=== PATIENT | male | born 1945 | race Caucasian/White ===

== ENCOUNTER → 2021-11-27 14:14 | Outpatient (BNVA) | payer MEDICARE, SELFPAY | PROVIDERS: PCP Internal Medicine; Visit Provider Nurse Practitioner Family | DX: M16.0 Bilateral primary osteoarthritis of hip (principal); M47.816 Spondylosis without myelopathy or radiculopathy, lumbar region; R10.32 Left lower quadrant pain | CPT/HCPCS: 99202 ==

== ENCOUNTER 2025-07-11 09:25 | Outpatient (AMB) | payer MEDICARE, SELFPAY ==
--- NOTE | 2025-07-11 09:38 | A.PHYSOV ---
Vital Signs 07/11/25 09:39 Height 5 ft 8 in Weight 183 lb BMI 27.8 Intake Visit Reasons: NPV [place] Ref- chronic b/l back & left hip pain Intake Note: Patient is a 79 year old male in office today for a new patient visit for left hip pain and low back pain Pulpwood Dealer Required: No Allergies No Known Allergies Allergy (Verified 07/11/25 09:37) HPI Comments Details: History of Present Illness The patient is a 79-year-old male presenting for evaluation of chronic back issues. He has had back issues for several years, which he believes may have started after overdoing yard work. He previously underwent physical therapy where piriformis syndrome was discussed, and he continues to perform the prescribed exercises, which helps prevent pain that wakes him at night. The pain is centered in the left lumbar spine area and sometimes radiates across his back and down his left leg, and occasionally his right leg. Symptoms are exacerbated by activities like yard work and prolonged sitting, but not necessarily by longer walks. Previous X-rays revealed bone spurs. I independently reviewed images of lumbosacral spine x-rays dated 05/14/2025 consistent with age-related degenerative changes, pretty much noncontributory. X-ray imaging of pelvis and left hip dated 06/10/2025 consistent with moderate osteoarthritis of the left hip and calcific trochanteric bursitis. Pain is rated 7/10 at the worst moments. He also reports a history of groin discomfort. A prior trochanteric bursa cortisone injection did not provide relief. Additionally, the patient experiences intermittent muscle cramping or twitching in his legs, causing involuntary foot flexion. Patient presented accompanied by his . Pain Description - Onset: The patient has had back issues for several years, possibly starting after overdoing yard work. - Location: Pain is primarily located in the left lower back, lumbar area. - Radiation: The pain sometimes comes across the back and radiates down the outside of the left leg, and occasionally the right leg. - Quality: Described as discomfort and pain, which can awaken him from sleep. - Associated symptoms: Reports muscle cramps/twitching in the legs, groin discomfort from a calcified bursa, and hip pain. - Exacerbating factors: Symptoms are worsened by yard work, significant bending, and prolonged sitting. - Relieving factors: Performing physical therapy exercises, especially before bed, helps him sleep through the night. Results - Imaging: X-rays of the back showed bone spurs. - Recent X-rays of the hip from showed moderate arthritis but preservation of cartilage space. [facility] Medical History (Updated 07/11/25 @ 10:07 by Pito Rosales DO) Degenerative joint disease of left hip Lumbar radiculitis Spinal stenosis, lumbar region with neurogenic claudication Surgical History (Updated 07/03/25 @ 14:54 by Cat Calhoun MA) History of knee surgery (Unknown) S/P appendectomy (Unknown) Social History (Updated 07/11/25 @ 09:40 by Cat Calhoun MA) Household Members: Spouse Alcohol intake: current Alcohol intake frequency: a few times a week Patient Tobacco Use Status: Former Tobacco user Current occupational status: retired Review of Systems Narrative Review of Systems - Musculoskeletal: Reports chronic low back pain, pain radiating to the left leg and occasionally the right, groin discomfort, and hip pain. - Reports audible crunching in his knee. - Neurological: Reports intermittent muscle cramping and twitching in his legs, causing involuntary foot flexion. - Constitutional: Denies being on any blood thinners. Patient denies any change in bowel bladder habits. He denies any fever or chills. Physical Exam Exam Exam: Physical Exam - Musculoskeletal: - Lumbar Spine: No tenderness to palpation in the midline. Lumbar extension was restricted. - Forward flexion was non-painful during the exam. - Hips: Left hip has markedly restricted range of motion. - Pain was elicited with passive flexion of the left hip. - The right hip has a much greater range of motion. - Knees: Audible crepitus noted in the left knee with passive motion. - Neurological: Deep tendon reflexes were tested and were very brisk and symmetric. Patient demonstrated no upper motor neuron signs. No focal motor deficits. He ambulates without antalgia and was able to perform heel walk and toe walk with support for balance. Vital Signs: BMI result Body Mass Index 27.8 Assessment & Plan Assessment & Plan (1) Spinal stenosis, lumbar region with neurogenic claudication: Code(s): M48.062 - Spinal stenosis, lumbar region with neurogenic claudication Category: Medical (2) Lumbar radiculitis: Code(s): M54.16 - Radiculopathy, lumbar region Category: Medical (3) Degenerative joint disease of left hip: Code(s): M16.12 - Unilateral primary osteoarthritis, left hip Category: Medical Plan Pain Management - Analgesia: The patient manages his pain with physical therapy exercises learned in the past. - A prior cortisone injection for a calcified bursa was not helpful. - Affect: The pain is discomforting and can awaken him from sleep. - Activities of Daily Living: Pain is exacerbated by yard work and prolonged sitting. Plan Patient was informed and verbally consented to the use of an ambient scribe for clinic note documentation during this visit. 1. Chronic Low Back Pain With Left Sciatica The patient's symptoms of chronic low back pain radiating down the left leg are suspicious for a pinched nerve. An MRI of the lumbar spine without contrast will be ordered to further evaluate the nerve and spinal structures. The patient will have the MRI performed at [facility]. He is advised to continue his home exercise program, which has been providing relief. It was recommended that the patient start taking 2000 mg of turmeric daily as a natural anti-inflammatory. A follow-up visit is scheduled in one month to review the MRI results and determine the next steps. 2. Osteoarthritis Of Left Hip The patient has significant clinical findings of left hip pathology, including markedly restricted range of motion and pain on exam, which could be a concurrent pain generator. The initial plan is to evaluate the lumbar spine first with an MRI. If the lumbar MRI does not explain his radicular symptoms, the next step would be to consider a diagnostic and therapeutic injection into the left hip. The recommendation to take turmeric also applies to the arthritic conditions in his hips and knees. Discussion Notes I discussed with the patient that his symptoms could be multifactorial, potentially stemming from both a pinched nerve in his lower back and arthritis in his left hip. I explained the physical exam findings, noting the significant difference in range of motion between his left and right hips. We will proceed with a [id number] diagnostic approach, starting with an MRI of his lumbar spine, which will be done without contrast at [facility]. I advised that if the MRI does not show a clear cause for his pain, our next step may be a diagnostic hip injection. I also recommended he start taking turmeric 2000 mg daily as a natural anti-inflammatory, emphasizing the need for consistent use and ensuring the product contains black pepper for better absorption. The patient was instructed to schedule a follow-up appointment in one month to review the MRI results. Patient Instructions - An MRI of your low back will be ordered. - You will be contacted by the imaging facility to schedule this appointment. - Schedule a follow-up appointment in our office in about one month, after the holidays, to review the MRI results. - You may start taking turmeric as a natural anti-inflammatory. - Take 2000 mg per day (for example, 1000 mg in the morning and 1000 mg at night). - Make sure the supplement you buy also contains black pepper. - Continue your home stretching exercises, as they seem to be helping your symptoms, especially at night. Orders: Orders MR lumbar spine wo con Today M48.062 - Spinal stenosis, lumbar region with neurogenic claudication, M54.16 - Radiculopathy, lumbar region Coding Level of Care Code Tele New Pt Level 4 (39815) Complex visit Add On G2211 Diagnoses Spinal stenosis, lumbar region with neurogenic claudication M48.062 Lumbar radiculitis M54.16 Degenerative joint disease of left hip M16.12
[2025-07-11 09:39] VITALS: BMI 27.8
--- OUTSIDE RECORDS SUMMARY | 2025-07-11 10:42 | XMS_ITS | Encounter Summary ---
Author Organization [facility] Address [address] [facility] [address] [place] [address] Phone Care Team Providers Care Tub Chucker Name Role Phone Teresa Nelson MD Primary Care Provider + Reason for Visit * Reason Onset Date Comments Med Refill 04/06/2024 Encounter Details Date Type Department Care Team (Late st Contact Info) Description 04/06/2024 Refill [facility] [address] [facility] [address] [place] [phone] Joaquin Abdi MD [address] [phone] Social History Tobacco Use Types Packs/Day Years Used Date Smoking Tobacco: Former Cigarettes 0 Q uit: 1976 Alcohol Use Standard Drinks/Week Comments Yes 2 (1 standard drink = 0.6 oz pur e alcohol) Sex and Gender Information Value Date Recorded Sex Assigned at Not on file Legal Sex Male 4:47 PM EST Gender Identity Not on file Sexual Orientation Not on file documented as of this encounter Plan of Treatment Upcoming Encounters Date Type Department Care Team (Late st Contact Info) Description 10/01/2025 9:40 AM EST Office Visit [facility] [address] [phone] Joaquin Abdi MD [address] [phone] documented as of this encounter Visit Diagnoses Not on filedocumented in this encounter Care Teams Tub Chucker Relationship Specialty Start Date End Date Teresa Nelson MD [address] [place] [phone] PCP - General 09/22/22 documented as of this encounter
--- OUTSIDE RECORDS SUMMARY | 2025-07-11 10:42 | XMS_ITS | Encounter Summary ---
Author Organization [facility] Address [address] [place] [address] Care Team Providers Care Pipe Organ Builder Name Role Phone Teresa Nguyen MD Primary Care Prov ider Reason for Referral * Consultation (Routine) - Authorized Specialty Diagnoses / Procedures Referred By Kimberlee weeks Referred To Contact Orthopaedics / Orthopaedic Surgery Diagnoses Primary osteoarthritis of left hip Teresa Nguyen MD [address] [place] [phone] Phone: tel: fax: Mariano Rausch PA [address] [place] [phone] Phone: tel: fax: Referral ID Status Reason Start Date Expiration Date Visits Requested Visits Authorized [id number] Authorized Specialty Services Required 05/17/2026 12 12 Encounter Details Date Type Department Care Team (Late st Contact Info) Description 05/17/2025 Results Follow-Up Adult Medicine [address] [phone] Teresa Nguyen MD [address] [place] [address] Social History Tobacco Use Types Packs/Day Years Used Date Smoking Tobacco: Former Cigarettes 0 Q uit: 08/08/1975 Smokeless Tobacco: Never Alcohol Use Standard Drinks/Week Comments Yes 2 (1 standard drink = 0.6 oz pur e alcohol) Housing Instability Answer Date Recorde d Are you worried that in the next 2 months you may not have stable housing? No 11/06/2024 Food Access & Nutrition Answer Date Rec orded Do you have access to a vari ety of food including fruits and vegetables? Yes 11/06/2024 Access to Healthcare Answer Date Record ed Within the last 3 months, ho w many times did you visit the emergency department for your medical care? 0 11/06/2024 Health Literacy Answer Date Recorded How often do you need to hav e someone help you when you read instructions, pamphlets, or other written material from your doctor or pharmacy? Never 11/06/2024 Caregiver: How often do you need to have someone help you when you read instructions, pamphlets, or other written material from your doctor or pharmacy? Not on file 11/06/2024 Financial Risk Answer Date Recorded How hard is it for you to pa y for the very basics like food, housing, medical care, and air conditioning / heating? Not very hard 11/06/2024 Transportation Answer Date Recorded Has the lack of transportati on kept you from meetings, work, or from getting things needed for daily living? No Has the lack of transportati on kept you from medical appointments or from getting medications? No 11/06/2024 Social Isolation Answer Date Recorded How often do you feel lonely or isolated from th ose around you? Never 11/06/2024 Food Risk Answer Date Recorded Within the past 12 months we worried whether our food would run out before we got money to buy more. Never true 11/06/2024 Within the past 12 months th e food we bought just didn't last and we didn't have money to get more. Never true 11/06/2024 Dependent Care Answer Date Recorded Do you need help finding or paying for care for your loved ones. For example, child life therapist or elderly care for an older adult? No 11/06/2024 Education Answer Date Recorded Do you think completing more education or training, like finishing a GED, going to college, or learning a trade, would be helpful for you? N/A 11/06/2024 Employment and Income Answer Date Recor ded During the last four weeks, have you been actively looking for work? No 11/06/2024 Living Situation Answer Date Recorded What is your living situation? Unrecognized valu e 11/06/2024 Sex and Gender Information Value Date Recorded Sex Assigned at Not on file Legal Sex Male 10:09 PM EST Gender Identity Not on file Sexual Orientation Not on file documented as of this encounter Plan of Treatment Upcoming Encounters Date Type Department Care Team (Late st Contact Info) Description 08/26/2025 9:30 AM EST Office Visit Pulmonology - [address] [place] [phone] Rosendo Verde MD [address] [place] [phone] 11/12/2025 9:00 AM EDT Office Visit [address] [phone] Dleores Blackmon PA [address] [place] [address] 06/03/2026 11:00 AM EDT Office Visit [address] [phone] Delores Blackmon PA [address] [place] [address] Scheduled Referrals Name Type Priority Associated Diagnoses Orde r Schedule Ambulatory referral to Orthopedic Outpatient Referral Routine Primary osteoarthritis of left hip 1 Occurrences starting 05/17/2025 until 05/17/2026 documented as of this encounter Goals Goal Patient Goal Type Associated Problems Recent Progress Patient-Stated? Author Autogenera amrtin Goal Care Plan Autogenerated Problem No Taylor Peace documented as of this encounter Visit Diagnoses Diagnosis Primary osteoarthritis of left hip- Primary documented in this encounter Additional Health Concerns Active Problems Noted Date Diagnosed Date Autogenerated Problem 05/16/2025 Assessment Noted Time PHQ-9 Depression Total Score: 1 11/07/19 25 9:18 AM EDT documented as of this encounter Care Teams Pipe Organ Builder Relationship Specialty Start Date End Date Teresa Nguyen MD [address] [place] [phone] PCP - General 07/13/22 documented as of this encounter
--- OUTSIDE RECORDS SUMMARY | 2025-07-11 10:42 | XMS_ITS | Clinical Summary ---
Author Organization [facility] Address [address] [phone] Phone Care Team Providers Care Ward Service Supervisor Name Role Phone Teresa Nelson MD Primary Care Provider + Allergies Active Allergy Reactions Criticality Noted Date Comments Other 09/21/2022 Seasonal allergies Medications hydroCHLOROthia zide 12.5 MG tablet Take 12.5 mg by mouth 1 (one) time each day 2 Active lisinopril (PRINIVIL,ZESTR IL) 30 MG tablet Take 30 mg by mouth 1 (one) time each day 2 Active simvastatin (ZOCOR) 20 MG tablet Take 20 mg by mouth every night Active Cholecalciferol (Vitamin D) 25 MCG (1000 UT) tablet Take by mouth Active omega-3 (FISH OIL) 1000 MG capsule Take by mouth 1 (one) time each day Active fluticasone (FLONASE) 50 MCG/ACT nasal spray Administer 2 sprays into each nostril 1 (one) time each day 16 g 1 4 Active Glucosamine-Cho ndroit-Vit C-Mn (GLUCOSAMINE 1500 COMPLEX PO) Take 1,500 mg by mouth 1 (one) time each day Active rOPINIRole (REQUIP) 1 MG tablet Take 1 mg by mouth every night 4 Active magnesium oxide (MAG-OX) 400 MG tablet Take 400 mg by mouth in the morning. 5 Active Active Problems Problem Noted Date Diagnosed Date Cyst of kidney 04/04/2023 Obstructive sleep apnea syndrome 04/04/2023 Stage 3b chronic kidney disease 09/21/2022 Hypertension 09/21/2022 Dyslipidemia 09/21/2022 Nocturia due to benign prostatic hypertrophy Vitamin D deficiency 02/07/2018 Restless legs 01/28/2016 Family History Medical History Relation Comments Cancer Father stomach Heart disease Mother Hypertension Mother Stroke Paternal Grandfather Heart disease Paternal Grandmother Hypertension Sister Relation Status Comments Father Mother Paternal Grandfather Paternal Grandmother Sister Social History Tobacco Use Types Packs/Day Years Used Date Smoking Tobacco: Former Cigarettes 0 Q uit: 1976 Tobacco Cessation:Counseling Given: Not Answered Alcohol Use Standard Drinks/Week Comments Yes 2 (1 standard drink = 0.6 oz pur e alcohol) Sex and Gender Information Value Date Recorded Sex Assigned at Not on file Legal Sex Male 4:47 PM EST Gender Identity Not on file Sexual Orientation Not on file Last Filed Vital Signs Vital Sign [place] Time Taken Comments Blood Pressure 126/74 04/02/2025 9:25 AM EDT Pulse 54 04/02/2025 9:25 AM EDT Temperature - - Respiratory Rate - - Oxygen Saturation 97% 04/02/2025 9:25 AM EDT Inhaled Oxygen Concentration - - Weight 83.9 kg (185 lb) 04/02/2025 9:25 AM EDT Height 172.7 cm (5' 8 ) 10/02/2024 9:43 AM EST Body Mass Index 28.13 10/02/2024 9:43 AM EST Plan of Treatment Upcoming Encounters Date Type Department Care Team (Late st Contact Info) Description 10/01/2025 9:40 AM EST Office Visit [facility] [address] [phone] Joaquin Abdi MD [address] [phone] Health Maintenance Due Date Last Done Comments Influenza Vaccine (#1) 2025 , 05/03/2022, 06/17/2021, Additional history exists Pneumococcal Vaccine: 50+ Years Completed 08/03/2017, 01/16/2013 Pneumococcal Vaccine: Peds (0 to 5 Years) and At-Risk Patients (6 to 49 Years) Discontinued 08/03/2017, 01/16/2013 Hepatitis B Vaccine Aged Out No longe r eligible based on patient's age to complete this topic Insurance [place] MCR/BERE ([id number]) [place] Dual MCR/BERE ([id number]) Care Teams Ward Service Supervisor Relationship Specialty Start Date End Date Teresa Nelson MD [address] [place] [phone] PCP - General 09/22/22
--- OUTSIDE RECORDS SUMMARY | 2025-07-11 10:42 | XMS_ITS | Encounter Summary ---
Author Organization [facility] Address [address] [place] [address] Care Team Providers Care Game Engineer Name Role Phone Teresa Nguyen MD Primary Care Prov ider Encounter Details Date Type Department Care Team ([facility] st Contact Info) Description 05/29/2025 Results Follow-Up Gastroenterology - [address] [place] [address] Manju Weinstein MD [address] [facility] [address] [facility] [place] [address] Social History Tobacco Use Types Packs/Day Years [...] Record ed Within the last 3 months, georgina de león many times did you visit the emergency [...] care for your loved ones. For example, early childhood assistant or elderly care for an older adult? [...] your living situation? Unrecognized valu e 11/06/2024 Interpersonal Safety Answer Date Record ed Physical Abuse Unrecognized value 05/23/2025 Verbal Abuse Unrecognized value 05/23/2025 Sex and Gender Information Value Date Recorded Sex Assigned at Not on file Legal Sex Male 10:09 PM EST Gender Identity Not on file Sexual Orientation Not on file documented as of this encounter Progress Notes * Manju Weinstein MD - 05/29/2025 3:11 PM EDT Moreno, Your stomach and esophagus biopsies were normal. There was no H. pylori infection or precancerous changes noted. Mild reflux irritation of the esophagus was noted. Continue the omeprazole that Andra Hampton prescribed. And follow-up as scheduled. Dr. Weinstein documented in this encounter Plan of Treatment Upcoming Encounters Date Type Department Care Team (Late st Contact Info) Description 08/26/2025 9:30 AM EST Office Visit Pulmonology - [address] [facility] [address] [place] [phone] Rosendo Verde MD [address] [place] [phone] 11/12/2025 9:00 AM EDT Office Visit Adult [address] [phone] Delores Blackmon PA [address] [place] [address] 06/03/2026 11:00 AM EDT Office Visit [address] [phone] Delores Blackmon PA [address] [place] [address] documented as of this encounter Goals Goal Patient Goal Type Associated Problems Recent Progress Patient-Stated? Author Autogenera martin Goal Care Plan Autogenerated Problem No Taylor Peace documented as of this encounter Visit Diagnoses Not on filedocumented in this encounter Additional Health Concerns Active Problems Noted Date Diagnosed Date Autogenerated Problem 05/16/2025 Assessment Noted Time PHQ-9 Depression Total Score: 1 11/07/19 25 9:18 AM EDT documented as of this encounter Care Teams Game Engineer Relationship Specialty Start Date End Date Teresa Nguyen MD [address] [place] [address] PCP - General 07/13/22 documented as of this encounter
--- OUTSIDE RECORDS SUMMARY | 2025-07-11 10:42 | XMS_ITS | Clinical Summary ---
Author Organization [facility] [address] [place] [address] [place] [phone] Phone Care Team Providers Care Service Representative Name Role Phone Teresa Nguyen MD Primary Care Prov ider Allergies Active Allergy Reactions Criticality Noted Date Comments Other 01/03/2019 Seasonal allergies Watery eye's , sneezing and itchy eye's Medications glucosamine/cho ndroitin/C/Everette (GLUCOSAMINE 1500 COMPLEX ORAL) Take by mouth. Activ e cholecalciferol (VITAMIN D-3) 25 mcg (1,000 unit) tablet Take by mouth. Ac tive omega-3 acid ethyl esters (LOVAZA) 1 gram capsule Take by mouth. Activ e rOPINIRole (REQUIP) 1 mg tablet Take 1 tablet (1 mg total) by mouth at bedtime. Prescribed by pulmonary for RLS Active simvastatin (ZOCOR) 20 mg tablet TAKE 1 TABLET BY MOUTH EVERYDAY AT BEDTIME 90 tablet 1 01/15/20 25 Active hydroCHLOROthia zide 12.5 mg tablet TAKE 1 TABLET BY MOUTH EVERY DAY 90 tablet 1 02/07/20 25 Active omeprazole (PriLOSEC) [address] capsuleIndicati ons:Gastroesoph ageal reflux disease, unspecified whether esophagitis present TAKE 1 CAPSULE BY MOUTH EVERY DAY -DO NOT CRUSH, CHEW, OR SPLIT 90 capsule 1 05/01/20 25 Active fluticasone propionate (FLONASE) 50 mcg/actuation nasal sprayIndication s:Allergic rhinitis, unspecified SPRAY 2 SPRAYS INTO EACH NOSTRIL EVERY DAY STRENGTH: 50 MCG/ACT 48 mL 5 05/07/20 25 Active lisinopriL (PRINIVIL,ZESTR IL) 30 mg tablet TAKE 1 TABLET BY MOUTH EVERY DAY 90 tablet 1 06/17/20 25 Active lisinopriL (PRINIVIL,ZESTR IL) 30 mg tablet TAKE 1 TABLET BY MOUTH 1 TIME EACH DAY. 90 tablet 2 09/21/19 25 025 Discontinued erythromycin 5 mg/gram (0.5 %) ophthalmic ointment Apply to left eye 4 (four) times a day for 7 days. 3.5 g 07/02/20 25 025 Active Problems Problem Noted Date Diagnosed Date Gastroesophageal reflux disease 05/14/2025 Assessment & Plan (05/14/2025 5:23 PM EDT): Already evaluated by GI, currently on PPI, pending to schedule EGD. Overweight (BMI 25.0-29.9) 05/10/2024 Assessment & Plan (05/30/2025 3:48 PM EDT): The patient is overweight. Approaches towards weight loss are discussed, including portion control, avoiding eating before bedtime, and regular exercise with an emphasis on duration rather than intensity Post-traumatic osteoarthritis of right knee 02/07 Primary osteoarthritis of left hip 03/07/2023 Assessment & Plan (05/30/2025 3:48 PM EDT): Scheduled with orthopedics Orders: Ambulatory referral to Physical Medicine Rehab; Future Trochanteric bursitis of left hip 12/17/2022 Benign prostatic hyperplasia with nocturia 02/19 CKD (chronic kidney disease) stage 3, GFR 30-59 ml/min (CMS/[facility] V24, CMS/[facility] V28) 11/21/2018 Assessment & Plan (05/14/2025 5:23 PM EDT): GFR, stable around 40-45. Patient follows with nephrology regularly. Encouraged to keep the appointments with the specialist. Assessment & Plan (11/12/2024 9:33 AM EDT): Diverticulosis of colon 11/21/2018 Primary osteoarthritis of left knee 11/21/2018 Hypercholesterolemia 03/23/2018 Assessment & Plan (05/30/2025 3:48 PM EDT): See HTN plan above Assessment & Plan (05/14/2025 5:23 PM EDT): Patient currently taking simvastatin 20 mg a day. We will continue same medication. Assessment & Plan (11/12/2024 9:33 AM EDT): Folliculitis 02/07/2018 Hypertension 02/07/2018 Assessment & Plan (05/30/2025 3:48 PM EDT): Patient's hypertension is well controlled with blood pressure as shown above. LDL cholesterol is well controlled with goal of less than 160 and goal of 100 if on cholesterol lowering medication. Current regimen includes hydrochlorothiazide 12.5 mg, lisinopril 30 mg, simvastatin 20 mg daily and no changes have been made. Lynda has been encouraged to follow a diet low in saturated fat, low in carbohydrates, and low in sodium. He has been encouraged to try to get 30 minutes of exercise 4 to 5 days a week to their tolerance. Patient is educated to call the office if he develops headaches, nosebleeds, chest pain, palpitations, changes in vision or if his blood pressure is greater than 140/90 for 3 consecutive days, as he should be seen sooner than routine follow-up in office. He is educated to report to the ED if his blood pressure is greater than 140/90 and there are associated symptoms of chest pain, shortness of breath, palpations, or abrupt changes in vision. If blood pressure is <100/60 patient should hold hydrochlorothiazide 12.5 mg, lisinopril 30 mg. Patient will require a 6 month follow up in office with primary care provider for re-evaluation and management of hypertension. Patient's questions today answered to the best of my ability. Patient understands and agrees to this plan and acknowledges to contact me with any additional questions or concerns. Assessment & Plan (05/14/2025 10:47 AM EDT): Well controlled. Today 115/65. Patient currently taking lisinopril 30 mg and hydrochlorothiazide 12.5 mg. We will continue same medications. Patient is encouraged to follow a low salt diet and exercise regularly. Electrolytes were normal on recent labs. Assessment & Plan (11/12/2024 9:33 AM EDT): Vitamin D deficiency 02/07/2018 External hemorrhoids 08/03/2017 Mild obstructive sleep apnea 01/28/2016 Restless legs syndrome 01/28/2016 Osteoarthritis of shoulder 07/22/2015 Cervical radiculopathy 01/22/2015 Osteoarthritis of right shoulder 01/15/2014 Allergic rhinitis 01/11/2013 Numbness 06/02/2012 Encounters Date Type Department Care Team Description 07/02/2025 12:45 PM EST Office Visit [facility] [address] [phone] Lynda Birtton NP Hordeolum externum of left lower eyelid (Primary Dx) 06/10/2025 1:00 PM EST Consult Orthopedics - [address] [phone] Mariano Rausch PA Primary osteoarthritis of left hip (Primary Dx); Radicular pain of left lower extremity 06/10/2025 12:15 PM EST - 06/10/2025 11:59 PM EST Hospital Encounter XRAY - [address] [phone] Left hip pain Discharge Disposition: Home or Self Care 05/30/2025 11:00 AM EDT Office Visit Adult Medicine [facility] - [address] [phone] Delores Blackmon PA Encounter for subsequent annual wellness visit (AWV) in Medicare patient (Primary Dx); Primary hypertension; Chronic kidney disease, stage 3b (CMS/HCC V24, CMS/HCC V28); Hypercholesterolemia; Overweight (BMI 25.0-29.9); Chronic bilateral low back pain with left-sided sciatica; Primary osteoarthritis of left hip 05/29/2025 Results Follow-Up Gastroenterology - [address] [place] [phone] Manju Weinstein MD 05/23/2025 9:45 AM EDT Anesthesia Event [facility] Endoscopy [address] [place] [phone] Rigoberto Moise MD Decandio, Laura, CRNA 05/23/2025 9:19 AM EDT - 05/23/2025 11:59 PM EDT Hospital Encounter [facility] Endoscopy [address] [place] [phone] Manju Weinstein MD Saliga, Jesse L, MD Decandio, Laura, CRNA Gastroesophageal reflux disease, unspecified whether esophagitis present; Family history of stomach cancer Discharge Disposition: Home or Self Care 05/17/2025 Results Follow-Up Adult Medicine [address] [phone] Teresa Weaver MD 05/16/2025 Telephone Gastroenterology - [address] [phone] Manju Weinstein MD 05/14/2025 9:24 AM EDT - 05/14/2025 11:59 PM EDT Hospital Encounter [address] [phone] Chronic bilateral low back pain with left-sided sciatica Discharge Disposition: Home or Self Care 05/14/2025 8:45 AM EDT Office Visit Adult Medicine [address] [phone] Teresa Weaver MD Primary hypertension (Primary Dx); Hypercholesterolemia; Gastroesophageal reflux disease, unspecified whether esophagitis present; Stage 3a chronic kidney disease (CMS/HCC V24, CMS/HCC V28); Chronic bilateral low back pain with left-sided sciatica from Last 3 Months Immunizations Immunization Administration Dates Next Due Influenza trivalent, 0.5mL ( Fluad) 65yo and older 05/15/2025,05/30/2023,05/03/2022,06/17,05/15/2021,04/18/2020,06/01/2019 ,06/17/2017,08/03/2016,05/22/2015 Influenza trivalent, 0.5mL, preservative free (Fluarix; FluLaval; Fluzone) ages 6mo and older (Afluria) 3 years and older 06/15/2013 Influenza, Unspecified 05/30/2023 Moderna (age 6mo-5yr) Bivale nt Additional Dose, COVID-19 06/17/2023,05/26/2022 Moderna SARS-CoV-2 COVID-19, mRNA, LNP-S, preservative free 11/19/2020 Pneumococcal conjugate 13 va lent (Prevnar 13, PCV13) 2mo and older 08/03/2017 Pneumococcal polysaccharide 23 valent (Pneumovax 23) 2yo and older 01/16/2013 Tdap Tetanus diptheria acell ular pertussis (Boostrix; Adacel) 7yo and older 12/17/2022,11/30/2012 Zoster Live 05/11/2013 Zoster recombinant (Shingrix ) 19yo and older 08/06/2020,06/04/2020 Surgical History Surgery Date Site/Laterality Comments APPENDECTOMY 1950 PROCEDURE: HISTORICAL APPENDECTOMY; COMMENT: age 6 COLONOSCOPY 07/04/2012 PROCEDURE: HISTORICAL COLONOSCOPY KNEE SURGERY PROCEDURE: HISTORICAL KNEE SURGERY COLONOSCOPY 12/06/2022 - 01/05/2023 TA x1, tic throughout ([address]) [address] Weinstein Medical History Medical History Date Comments Allergic rhinitis 01/11/2013 DX:Allergic rh initis Cervical radiculopathy 01/22/2015 DX:Cervic al radiculopathy CKD (chronic kidney disease) stage 3, GFR 30-59 ml/min (CMS/HCC V24, CMS/HCC V28) 11/21/2018 DX:CKD (chroni c kidney disease) stage 3, GFR 30-59 ml/min ([facility]) Diverticulosis of colon 11/21/2018 DX:Diver ticulosis of colon DJD (degenerative joint disease) of knee 11/22/19 DX:DJD (degenerative joint disease) of knee External hemorrhoids 08/03/2017 DX:External hemorrhoids Folliculitis 02/07/2018 DX:Folliculitis History of skin cancer 11/21/2018 DX:Histor y of skin cancer History of torn meniscus of left knee 02/02/2017 DX:History of torn meniscus of left knee Hypercholesterolemia 03/23/2018 DX:Hypercho lesterolemia Hypertension 02/07/2018 DX:Hypertension Numbness 06/02/2012 DX:Numbness Obstructive sleep apnea 01/28/2016 DX:Obstr uctive sleep apnea Osteoarthritis of right shoulder 01/15/2014 DX: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 07/22/2015 DX:Os teoarthritis of shoulder Restless legs syndrome 01/28/2016 DX:Restle ss legs syndrome Vitamin D deficiency 02/07/2018 DX:Vitamin D deficiency Family History Medical History Relation Name Comments Ulcerative colitis Daughter Stomach cancer Father Heart failure Mother HTN, PPM,[place], Macular Degeneration Stroke Paternal Grandfather Heart attack Paternal Grandmother Hypertension Sister Relation Name Status Comments Daughter Father Maternal Grandfather Maternal Grandmother Mother Paternal Grandfather Paternal Grandmother Sister Alive Social History Tobacco Use Types Packs/Day Years Used Date Smoking Tobacco: Former Cigarettes 0 Q uit: 08/08/1975 Smokeless Tobacco: Never Tobacco Cessation:Counseling Given: Not Answered Alcohol Use [...] for your loved ones. For example, child therapist or elderly care for an older [...] on file Sexual Orientation Not on file Obstetrics History Last Filed Vital Signs Vital Sign Reading Time Taken Comments Blood Pressure 130/67 07/02/2025 12:59 PM EST Pulse 58 07/02/2025 12:59 PM EST Temperature 36 C (96.8 F) 07/02/2025 12:59 PM EST Respiratory Rate 16 07/02/2025 12:59 PM EST Oxygen Saturation 99% 07/02/2025 12:59 PM EST Inhaled Oxygen Concentration - - Weight 83.5 kg (184 lb) 06/10/2025 12:33 PM EST Height 172.7 cm (5' 8 ) 06/10/2025 12:33 PM EST Body Mass Index 27.98 06/10/2025 12:33 PM EST Plan of Treatment Upcoming Encounters Date Type Department Care Team (Late st Contact Info) Description 08/26/2025 9:30 AM EST Office Visit Pulmonology - [place] [address] [place] [phone] Rosendo Verde MD [address] [place] [phone] 11/12/2025 9:00 AM EDT Office Visit Adult Medicine [address] [phone] Delores Blackmon PA [address] [place], [place] 06/03/2026 11:00 AM EDT Office Visit Adult [address] [phone] Delores Blackmon PA [address] [place], [place] Health Maintenance Due Date Last Done Comments RSV Immunization Adult Patients (1 - 1-dose 75+ series) 2021 Social Influencers of Health Screening 11/06/2025 11/06/2024 COVID-19 Vaccine (6 - Moderna risk season) 2025 06/05/2025, 06/13/2024, 06/17/2023, Additional history exists Hypertension/CHF/CAD Annual BMP Blood Test 03/20/2026 03/20/2025, 03/20/2025, 03/20/2025, Additional history exists Falls Risk Assessment 05/23/2026 05/23/2025 Medicare Annual Wellness Visit 05/30/2026 05/30/2025 Cholesterol Screening (Lipid Panel) 09/28/2029 09/28/2024, 09/28/2024, 02/21/2024, Additional history exists DTaP,Tdap,and Td Vaccines (3 - Td or Tdap) 12/17/2032 12/17/2022, 11/30/2012 Pneumococcal Vaccine: 50+ Years Completed 08/03/2017, 01/16/2013 Zoster Vaccines Completed 08/06/2020, 05/09, 05/11/2013 Colorectal Cancer Screening: Colonoscopy Discontinued 12/08/2022 Abdominal Aortic Aneurysm (AAA) Screen Discontinued 04/02/2025, 08/23/2022 Influenza Vaccine Completed 05/15/2025, , 05/30/2023, Additional history exists Depression Screening Completed 05/30/2025 HIB Vaccines Aged Out No longer eligi ble based on patient's age to complete this topic HPV Vaccines Aged Out No longer eligi ble based on patient's age to complete this topic Hepatitis A Vaccines Aged Out No long er eligible based on patient's age to complete this topic Hepatitis B Vaccines Aged Out No long er eligible based on patient's age to complete this topic Hepatitis C Screening Discontinued IPV Vaccines Aged Out No longer eligi ble based on patient's age to complete this topic MMR Vaccines Aged Out No longer eligi ble based on patient's age to complete this topic Meningococcal ACWY Vaccine Aged Out N o longer eligible based on patient's age to complete this topic Meningococcal B Vaccine Aged Out No l onger eligible based on patient's age to complete this topic RSV Immunization Patients Under 20 months Aged Out No longer eligible based on patient's age to complete this topic Varicella Vaccines Aged Out No longer eligible based on patient's age to complete this topic Goals Goal Patient Goal Type Associated Problems Recent Progress Patient-Stated? Author Autogenera martin Goal Care Plan Autogenerated Problem No NataTaylor Procedures Procedure Name Priority Date/Time Associated Diagnosis Comments XR HIP 2-3 VIEWS LEFT Routine 06/10/2025 12:24 PM EST Left hip pain EGD Routine 05/23/2025 9:56 AM EDT Gastroesophageal reflux disease, unspecified whether esophagitis present Family history of stomach cancer TISSUE EXAM Routine 05/23/2025 9:51 AM EDT Gastroesophageal reflux disease, unspecified whether esophagitis present Family history of stomach cancer XR LUMBAR SPINE 4+ VIEWS Routine 05/14/2025 9:38 AM EDT Chronic bilateral low back pain with left-sided sciatica COMPREHENSIVE METABOLIC PANEL Routine 03/20/2025 10:40 AM EDT Chronic kidney disease (CKD) stage G3b/A1, moderately decreased glomerular filtration rate (GFR) between 30-44 mL/min/1.73 square meter and albuminuria creatinine ratio les* (CMS/HCC V24, CMS/HCC V28) Vitamin D deficiency Essential hypertension, benign Hyperlipemia Restless legs Acquired cyst of kidney LIPID PANEL WITH REFLEX TO DIRECT LDL Routine 09/28/2024 11:30 AM EST Chronic kidney disease (CKD) stage G3b/A1, moderately decreased glomerular filtration rate (GFR) between 30-44 mL/min/1.73 square meter and albuminuria creatinine ratio les* (CMS/HCC V24, CMS/HCC V28) Acquired cyst of kidney Vitamin D deficiency, unspecified EXTERNAL COLONOSCOPY REPORT Routine 12/08/2022 1:17 PM EDT US ABDOMINAL AORTA REAL TIME SCREEN STUDY AAA Routine 08/23/2022 8:37 AM EST Personal history of nicotine dependence from Last 3 Months or Most Recently Relevant to Health Maintenance Results * XR Hip 2-3 Views Left (06/10/2025 12:24 PM EST) Anatomical Region Laterality Modality Lower Extremities, Hip Left Radiograp hic Imaging 06/10/2025 3:15 PM EST Impressions 06/10/2025 3:17 PM EST Moderate osteoarthritis of the left hip. Calcific trochanteric bursitis of both hips. Lumbar spondylosis. -------- FINAL REPORT -------- Dictated By: Franchesca Reeder Dictated Date: 06/10/2025 15:15 ET Assigned Physician: Franchesca Reeder Reviewed and Electronically Signed By: Franchesca Reeder Signed Date: 06/10/2025 15:17 ET Workstation ID: [id number] Transcribed By: Self Edit Transcribed Date: 06/10/2025 15:15 ET Narrative 06/10/2025 3:17 PM EST PELVIS, SINGLE FRONTAL VIEW LEFT HIP, FRONTAL & FROG LEG LATERAL VIEWS HISTORY: Hip joint pain. PRIORS: None. FINDINGS: There is narrowing and subchondral sclerosis of the left hip joint. There is mild spurring about the left hip. There is a coarse soft tissue calcification lateral to the left greater trochanter. There is a smaller coarse soft tissue calcification lateral to the right greater trochanter. There is degenerative change of the visualized lower lumbar spine. There is atherosclerosis. No acute fracture, malalignment, or soft tissue abnormality is seen. Procedure Note Franchesca Reeder MD - 06/10/2025 PELVIS, SINGLE FRONTAL VIEW LEFT HIP, FRONTAL & FROG LEG LATERAL VIEWS HISTORY: Hip joint pain. PRIORS: None. FINDINGS: There is narrowing and subchondral sclerosis of the left hipjoint. There is mild spurring about the left hip. There is a coarse soft tissue calcification lateral to the left greatertrochanter. There is a smaller coarse soft tissue calcification lateral to the rightgreater trochanter. There is degenerative change of the visualized lower lumbar spine. There is atherosclerosis. No acute fracture, malalignment, or soft tissue abnormality is seen. IMPRESSION: Moderate osteoarthritis of the left hip. Calcific trochanteric bursitis ofboth hips. Lumbar spondylosis. -------- FINAL REPORT -------- Dictated By: Franchesca Reeder Dictated Date: 06/10/2025 15:15 ET Assigned Physician: Franchesca Reeder Reviewed and Electronically Signed By: Franchesca Reeder Signed Date: 06/10/2025 15:17 ET Workstation ID: [id number] Transcribed By: Self Edit Transcribed Date: 06/10/2025 15:15 ET Mariano BAEZA IMG XR PROCEDURES Final Result * EGD Anesthesia - MAC; [facility] ENDOSCOPY (05/23/2025 9:56 AM EDT) Anatomical Region Laterality Modality Endoscopy 05/23/2025 9:46 AM EDT Impressions 05/23/2025 9:57 AM EDT - Small hiatal hernia. - LA Grade A reflux esophagitis with no bleeding. Biopsied. - Normal stomach. Biopsied. - Normal examined duodenum. Recommendation: - Continue present medications. - Await pathology results. Narrative 05/23/2025 9:57 AM EDT [facility] GI Patient Name: Lynda Lorenzo Procedure Date: 05/23/2025 9:46 AM Date of : 1945 Age: 79 Gender: Male Note Status: Finalized Attending MD: Manju Weinstein MD, Procedure Date No Time: 05/23/2025 Procedure: Upper GI endoscopy Indications: Follow-up of gastro-esophageal reflux disease, Family history of gastric cancer Providers: Manju Weinstein MD Referring MD: Teresa angelo MD Medicines: Propofol per Anesthesia Complications: No immediate complications. Estimated Blood Loss: Estimated blood loss: none. Procedure: Pre-Anesthesia Assessment: - ASA Grade Assessment: II - A patient with mild systemic disease. After obtaining informed consent, the endoscope was passed under direct vision. Throughout the procedure, the patient's blood pressure, pulse, and oxygen saturations were monitored continuously.The Endoscope was introduced through the mouth, and advanced to the second part of duodenum. The upper GI endoscopy was accomplished without difficulty. The patient tolerated the procedure well. Findings: A small hiatal hernia was present. LA Grade A (one or more mucosal breaks less than 5 mm, not extending between tops of 2 mucosal folds) esophagitis with no bleeding was found at the gastroesophageal junction. Biopsies were taken with a cold forceps for histology. The entire examined stomach was normal. Biopsies were taken with a cold forceps for histology. The cardia and gastric fundus were normal on retroflexion. The examined duodenum was normal. Procedure Code(s): --- Professional --- 06549, Esophagogastroduodenoscopy, flexible, transoral; with biopsy, single or multiple Diagnosis Code(s): --- Professional --- K44.9, Diaphragmatic hernia without obstruction or gangrene K21.00, Gastro-esophageal reflux disease with esophagitis, without bleeding Z80.0, Family history of malignant neoplasm of digestive organs CPT copyright 2020 [employer]. All rights reserved. The codes documented in this report are preliminary and upon historic preservationist review may be revised to meet current compliance requirements. Manju Weinstein MD 05/23/2025 9:57:13 AM This report has been signed electronically.Manju Weinstein MD Number of Addenda: 0 Note Initiated On: 05/23/2025 9:46 AM Scope In: Scope Out: Endoscopy Department at [facility] - [address] [place] [phone] Procedure Note Manju Weinstein MD - 05/23/2025 [facility] GI Patient Name: Lynda Lorenzo Procedure Date: 05/23/2025 9:46 AM Date of : 1945 Age: 79 Gender: Male Note Status: Finalized Attending MD: Manju Weinstein MD, Procedure Date No Time: 05/23/2025 Procedure: Upper GI endoscopy Indications: Follow-up of gastro-esophageal reflux disease,Family history of gastric cancer Providers: Manju Weinstein MD Referring MD: Teresa angelo MD Medicines: Propofol per Anesthesia Complications: No immediate complications. Estimated Blood Loss: Estimated blood loss: none. Procedure: Pre-Anesthesia Assessment: - ASA Grade Assessment: II - A patient with mild systemic disease. After obtaining informed consent, the endoscope was passed under direct vision. Throughout theprocedure, the patient's blood pressure, pulse, and oxygen saturations were monitored continuously.TheEndoscope was introduced through the mouth, and advanced tothe second part of duodenum. The upper GI endoscopy was accomplished without difficulty. The patienttolerated the procedure well. Findings: A small hiatal hernia was present. LA Grade A (one or more mucosal breaks less than 5mm, not extending between tops of 2 mucosal folds) esophagitis with no bleeding was found at the gastroesophageal junction. Biopsies were taken witha cold forceps for histology. The entire examined stomach was normal. Biopsieswere taken with a cold forceps for histology. The cardia and gastric fundus were normal on retroflexion. The examined duodenum was normal. Procedure Code(s): --- Professional --- 15313, Esophagogastroduodenoscopy, flexible, transoral; with biopsy, single or multiple Diagnosis Code(s): --- Professional --- K44.9, Diaphragmatic hernia without obstruction or gangrene K21.00, Gastro-esophageal reflux disease with esophagitis, without bleeding Z80.0, Family history of malignant neoplasm of digestive organs CPT copyright 2020 [employer]. All rights reserved. The codes documented in this report are preliminary and upon historic preservationist reviewmay be revised to meet current compliance requirements. Manju Weinstein MD 05/23/2025 9:57:13 AM This report has been signed electronically.Manju Weinstein MD Number of Addenda: 0 Note Initiated On: 05/23/2025 9:46 AM Scope In: Scope Out: Endoscopy Department at [facility] - [address] [place] [phone] IMPRESSION: - Small hiatal hernia. - LA Grade A reflux esophagitis with no bleeding. Biopsied. - Normal stomach. Biopsied. - Normal examined duodenum. Recommendation: - Continue present medications. - Await pathology results. us Manju Weinstein MD GI~PROCEDURE ORDERABLES Final Result * Tissue exam (05/23/2025 9:51 AM EDT) Final Diagnosis A. Stomach, biopsy: - Gastric antral and oxyntic type mucosa with patchy chronic and focal active gastritis. - No intestinal metaplasia identified. - Although no Helicobacter pylori identified on hematoxylin and eosin stained sections, because of the presence of focal active gastritis, an immunohistochemical study for Helicobacter pylori was performed. The immunohistochemical study is negative for Helicobacter pylori (appropriate control slide reviewed). B. Esophagus, biopsy: - Esophageal squamous mucosa with occasional intraepithelial eosinophils (maximum of three intraepithelial eosinophils in a high power field) and reactive epithelial changes including patchy spongiosis and basilar hyperplasia and focal parakeratosis. - Gastric cardiac-type mucosa with patchy chronic and focal active inflammation. - No intestinal metaplasia and no dysplasia identified. 8:45 AM EDT [facility] LAB at 0845 EDT Gross Description A. Gastric, Body, biopsies: Labeled biopsies, gastric . Received in formalin are three jay-white mucosal tissue fragments, ranging from 0.4 x 0.2 x 0.2 cm to 0.5 x 0.3 x 0.2 cm. The specimens are wrapped in paper, and submitted in toto in one cassette, three pieces, multiple levels. B. Esophagus, biopsies: Labeled biopsies, esophagus . Received in formalin are two jay-white mucosal tissue fragments, measuring 0.4 x 0.3 x 0.2 cm and 0.6 x 0.3 x 0.2 cm. The specimens are wrapped in paper, and submitted in toto in one cassette, two pieces, multiple levels. KR 8:45 AM EDT [facility] Disclaimer NOTE: The immunohistochemical tests and in situ hybridization tests were developed and their performance characteristics were determined by [facility]. They have not been cleared or approved by the U.S. Food and Drug Administration. The FDA has determined that such clearance or approval is not necessary. These tests are used for clinical purposes. They should not be regarded as investigational or for research. This laboratory is certified under the Clinical Laboratory Improvement Amendments of 1988 (CLIA) as qualified to perform high complexity clinical laboratory testing. (controls appropriate) Unless otherwise specified, all tissue is 10% NB formalin fixed and paraffin embedded. 8:45 AM EDT [facility] Tissue Gastric corpus structure / Unknown 05/23/2025 9:51 AM EDT 05/23/2025 10:40 AM EDT Tissue specimen (specimen) Esophageal structure / Unknown 05/23/2025 9:52 AM EDT 05/23/2025 10:40 AM EDT Manju Weinstein MD LAB PATHOLOGY ORDERABLES Final Result [facility] [address] [place] [address], * XR Lumbar Spine 4+ Views (05/14/2025 9:38 AM EDT) Anatomical Region Laterality Modality Spine, L-spine Radiographic Christa ging 05/14/2025 10:3 9 AM EDT Impressions 05/14/2025 10:42 AM EDT Spondylosis, not significantly changed. Mild degenerative change of the left hip. -------- FINAL REPORT -------- Dictated By: Franchesca Reeder Dictated Date: 05/14/2025 10:39 ET Assigned Physician: Franchesca Reeder Reviewed and Electronically Signed By: Franchesca Reeder Signed Date: 05/14/2025 10:42 ET Workstation ID: [id number] Transcribed By: Self Edit Transcribed Date: 05/14/2025 10:39 ET Narrative 05/14/2025 10:42 AM EDT LUMBOSACRAL SPINE, 4 VIEWS INCLUDING OBLIQUES HISTORY: Back pain. Prior: Lumbar spine 10/07/2021. FINDINGS: There is normal alignment of the lumbosacral spine. No fractures are seen. There is disc space narrowing and endplate spurring at L2-3, L3-4, and L5-S1. There is endplate spurring at every other level as well. There is facet hypertrophy at the lower lumbar spine. There is atherosclerosis. There is mild degenerative change of the left hip, new since the previous study. Procedure Note Franchesca Reeder MD - 05/14/2025 LUMBOSACRAL SPINE, 4 VIEWS INCLUDING OBLIQUES HISTORY: Back pain. Prior: Lumbar spine 10/07/2021. FINDINGS: There is normal alignment of the lumbosacral spine. No fractures areseen. There is disc space narrowing and endplate spurring at L2-3, L3-4, andL5-S1. There is endplate spurring at every other level as well. There isfacet hypertrophy at the lower lumbar spine. There is atherosclerosis. There is mild degenerative change of the left hip, new since the previousstudy. IMPRESSION: Spondylosis, not significantly changed. Mild degenerative change of theleft hip. -------- FINAL REPORT -------- Dictated By: Franchesca Reeder Dictated Date: 05/14/2025 10:39 ET Assigned Physician: Franchesca Reeder Reviewed and Electronically Signed By: Franchesca Reeder Signed Date: 05/14/2025 10:42 ET Workstation ID: [id number] Transcribed By: Self Edit Transcribed Date: 05/14/2025 10:39 ET us Teresa Nguyen MD IMG XR PROCEDURES Final Result * (ABNORMAL) Comprehensive metabolic panel (03/20/2025 10:40 AM EDT) Sodium 139 133 - 145 mmol/L LAB CHEMISTRY METHOD 03/20/2025 12:32 PM [facility] Potassium 4.2 3.5 - 5.5 mmol/L LAB CHEMISTRY METHOD 03/20/2025 12:32 PM [facility] Chloride 108 96 - 110 mmol/L LAB CHEMISTRY METHOD 03/20/2025 12:32 PM [facility] CO2 28 21 - 32 mmol/L LAB CHEMISTRY METHOD 03/20/2025 12:32 PM [facility] Anion Gap 3 3 - 11 LAB CHEMISTRY METHOD 03/20/2025 12:32 PM [facility] Glucose 92 70 - 100 mg/dL LAB CHEMISTRY METHOD 03/20/2025 12:32 PM [facility] BUN 25 5 - 25 mg/dL LAB CHEMISTRY METHOD 03/20/2025 12:32 PM [facility] Creatinine 1.57(H) 0.70 - 1.30 mg/dL LAB CHEMISTRY METHOD 03/20/2025 12:32 PM [facility] eGFR 45(L) >=60 mL/min/1. 73m2 LAB CHEMISTRY METHOD 03/20/2025 12:32 PM [facility] Comment:Calculation based on the Chronic Kidney Disease Epidemiology Collaboration (CKD-EPI) equation refit without adjustment for race. BUN/Creatinine Ratio 15.9 LAB CHEMISTRY METHOD 03/20/2025 12:32 PM [facility] Calcium 9.0 8.5 - 10.5 mg/dL LAB CHEMISTRY METHOD 03/20/2025 12:32 PM [facility] AST (SGOT) 21 10 - 42 unit/L LAB CHEMISTRY METHOD 03/20/2025 12:32 PM [facility] ALT (SGPT) 25 10 - 60 unit/L LAB CHEMISTRY METHOD 03/20/2025 12:32 PM EDT [facility] Alkaline Phosphatase 57 42 - 121 unit/L LAB CHEMISTRY METHOD 03/20/2025 12:32 PM EDT [facility] Total Protein 6.6 6.0 - 8.0 g/dL LAB CHEMISTRY METHOD 03/20/2025 12:32 PM EDT [facility] Albumin 3.8 3.2 - 5.0 g/dL LAB CHEMISTRY METHOD 03/20/2025 12:32 PM EDT [facility] Total Bilirubin 0.9 0.0 - 1.4 mg/dL LAB CHEMISTRY METHOD 03/20/2025 12:32 PM EDT [facility] Blood Venous blood specimen / Unknown Venipuncture / Unknown 03/20/2025 10:40 AM EDT 03/20/2025 10:40 AM EDT us Joaquin Abdi MD LAB BLOOD ORDERABLES Final Result [facility] [address] [place] [address], * Lipid panel with reflex to direct LDL (09/28/2024 11:30 AM EST) Cholesterol 126 0 - 200 mg/dL LAB CHEMISTRY METHOD 09/28/2024 4:14 PM [facility] Triglycerides 66 0 - 150 mg/dL LAB CHEMISTRY METHOD 09/28/2024 4:14 PM [facility] HDL 53 >=40 mg/dL LAB CHEMISTRY METHOD 09/28/2024 4:14 PM [facility] LDL Calculated 60 0 - 100 mg/dL LAB CHEMISTRY METHOD 09/28/2024 4:14 PM [facility] VLDL Cholesterol Luis 13.2 mg/dL LAB CHEMISTRY METHOD 09/28/2024 4:14 PM EST [facility] Non HDL Chol. (LDL+VLDL) 73 <145 mg/dL LAB CHEMISTRY METHOD 09/28/2024 4:14 PM EST [facility] Chol/HDL Ratio 2.4 0.0 - 4.4 LAB CHEMISTRY METHOD 09/28/2024 4:14 PM EST [facility] Blood Venous blood specimen / Unknown Venipuncture / Unknown 09/28/2024 11:30 AM EST 09/28/2024 11:30 AM EST us Joaquin Abdi MD LAB BLOOD ORDERABLES Final Result [facility]) [facility] [address] [place] [address], [place] [phone] * External Colonoscopy Report (12/08/2022 1:17 PM EDT) Anatomical Region Laterality Modality Endoscopy Historical Provider GI~PROCEDURE ORDERABLES F inal Result * US ABDOMINAL AORTA REAL TIME SCREEN STUDY AAA (08/23/2022 8:37 AM EST) Anatomical Region Laterality Modality Ultrasound 07/26/2022 3:51 PM EST Narrative 08/23/2022 11:09 AM EST Ultrasound of the abdominal aorta. History screening for AAA. There is no evidence of AAA. Proximal aorta measures 2.7 cm, mid aorta measures 1.8 cm, distal aorta measures 1.6 cm. Proximal right common iliac artery measures 1.1 cm, proximal left common iliac artery measures 1 cm. CONCLUSIONS: No evidence of AAA. Procedure Note Lisset Parada MD - 09/13/2023 Ultrasound of the abdominal aorta. History screening for AAA. There is no evidence of AAA. Proximal aorta measures 2.7 cm, mid aortameasures 1.8 cm, distal aorta measures 1.6 cm. Proximal right common iliac artery measures 1.1cm, proximal left common iliac artery measures 1 cm. CONCLUSIONS: No evidence of AAA. us Delores BAEZA IMG US PROCEDURES Final Result from Last 3 Months or Most Recently Relevant to Health Maintenance Additional Health Concerns Active Problems Noted Date Diagnosed Date Autogenerated Problem 05/16/2025 Insurance [employer] Care Teams Service Representative Relationship Specialty Start Date End Date Teresa Nguyen MD [address] [place] [id number] PCP - General 07/13/22
== END 2025-07-11 10:07 | disposition home or self-care (01) ==
LOC: HO.HPHYS 09:26
PROVIDERS: PCP Internal Medicine; Visit Provider Physical Medicine & Rehabilitation
DX: M48.062 Spinal stenosis, lumbar region with neurogenic claudication (principal); M54.16 Radiculopathy, lumbar region; M16.12 Unilateral primary osteoarthritis, left hip
CPT/HCPCS: 99204; G2211

== ENCOUNTER → 2025-07-11 09:25 | Outpatient (BNVA) | payer MEDICARE, SELFPAY | PROVIDERS: PCP Internal Medicine; Visit Provider Physical Medicine & Rehabilitation | DX: M48.062 Spinal stenosis, lumbar region with neurogenic claudication (principal); M54.16 Radiculopathy, lumbar region; M16.12 Unilateral primary osteoarthritis, left hip; M54.42 Lumbago with sciatica, left side; G89.29 Other chronic pain | CPT/HCPCS: 99202 ==